=== PATIENT | female | born 1995 | race Hispanic/Latino ===

== ENCOUNTER 2018-01-01 05:38 | Inpatient (IN) | payer BC ==
[~2018-01-01 05:38] MED LIST: ACETAMINOPHEN 500 MG TAB PO PRN; METOCLOPRAMIDE 10 MG/2mL INJ IV PRN; ONDANSETRON 4 MG/2 ML VIAL IV PRN; Ringers Lactate 1,000 ML IV PRN; Ringers Lactate 1,000 ML IV SCH
--- OUTSIDE RECORDS SUMMARY | 2018-01-01 05:40 | XMS REPORT ---
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
--- OUTSIDE RECORDS SUMMARY | 2018-01-01 05:40 | XMS REPORT ---
:1995 Author Organization [employer] Care Team Providers Name Role Phone Fior Ag Provider Role Unavailable Allergies No Known Allergies Problems Problem Type Condition Code Onset Dates Condition Status Assessment Normal in second trimester Z34.92 Active Problem Normal in second trimester Z34.92 Active Medications No Known Medications Results No Known Results Summary Purpose [email or web address] Submission
--- OUTSIDE RECORDS SUMMARY | 2018-01-01 05:40 | XMS REPORT ---
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
--- OUTSIDE RECORDS SUMMARY | 2018-01-01 05:40 | XMS REPORT ---
[...] other Z34.83 Active normal in third trimester Medications No Known Medications Results No Known Results Summary Purpose [employer] Submission
--- OUTSIDE RECORDS SUMMARY | 2018-01-01 05:40 | XMS REPORT ---
:1995 Author Organization [facility] Care Team Providers Name Role Phone Fior Ag Provider Role Unavailable Allergies No Known Allergies Problems Problem Type Condition Code Onset Dates Condition Status Assessment Normal in second Z34.92 Active trimester Assessment Other viral diseases complicating O98.512 Active , second trimester Problem Normal in second Z34.92 Active trimester Assessment Herpesviral infection, unspecified B00.9 Active Medications No Known Medications Results No Known Results Summary Purpose [facility] [employer] Submission
[2018-01-01] MEDS ORDERED: miSOPROStol 100 MCG TAB PO ONE (06:32)
[2018-01-01 06:53] VITALS: BMI 35.3
[2018-01-01 07:01] LABS: RPR Titer ND
[2018-01-01 07:05] LABS: Urine Appearance CLOUDY; Urine Bilirubin NEGATIVE (NEG); Urine Blood NEGATIVE (NEG); Urine Color YELLOW; Urine Glucose NEGATIVE (NEG); Urine Protein NEGATIVE (NEG)
[2018-01-01 07:07] LABS: Absolute Monocytes 0.6 K/uL (0.1-1.3); Absolute Neutrophil 6.5 K/uL (1.8-8.0); Basophils % 0.2 % (0-1.3); Eosinophils % 0.9 % (0-4.4); Hematocrit 38.1 % (36.0-45.0); Lymphocytes % 21.2 % (15.3-44.8); MCV 92.9 fL (80-100); MPV 8.2 fL (7.6-11.3); Monocytes % 6.8 % (3.3-12.3); Urine Microscopic Reflex ORDER UMIC
[2018-01-01 07:20] LABS: Urine RBC <5 /HPF (NONE SEEN)
[2018-01-01 07:21] LABS: Urine Bacteria 20-50 /HPF (<20); Urine Culture Reflex Order REFLEXED; Urine Triple Phosphate Crystal FEW (NONE SEEN)
[2018-01-01] MEDS ORDERED: FENTANYL CITR 100 MCG/2 ML IV ONE (09:16)
[2018-01-01] MEDS ORDERED: ROPIVACAINE HCL 100 ML IV PRN (09:16)
[2018-01-01] MEDS ORDERED: ROPIVACAINE HCL 0.2% 20ML AMP SQ ONE (09:17)
--- NOTE | 2018-01-01 09:47 | P.HP ---
Certification for Inpatient Patient admitted to: Inpatient With expected LOS: >2 Midnights Patient will require the following post-hospital care: None Practitioner: I am a practitioner with admitting privileges, knowledge of patient current condition, hospital course, and medical plan of care. Services: Services provided to patient in accordance with Admission requirements found in Title 42 Section 412.3 of the Code of Federal Regulations Patient History Date of Service: 01/01/18 Reason for admission: Elective induction of labor History of Present Illness: 22-year-old 001 at 39 weeks and 6 days being admitted for elective induction of labor. She has had adequate care starting at 9 weeks. complicated by history of HSV-2 on prophylaxis since 36 weeks. Patient denies any signs or symptoms. LOUISE: 01/02/2018. GBS negative. Allergies No Known Allergies Allergy (Unverified 01/01/18 04:19) Home Medications: Vitamins/Fe Sulf/FA [ Tablet] 1 each PO DAILY 01/01/18 Valacyclovir [Valtrex] 500 mg PO Q8H 01/01/18 - Past Medical/Surgical History Has patient received pneumonia vaccine in the past: No -: HSV 2 -: Ovarian Cyst removed 2008 -: Vaginal delivery 2014 - Family History Brother -: Lung disease Notes: adolescent asthma - Social History Smoking Status: Never smoker Alcohol use: No CD- Drugs: No Caffeine use: Yes Place of Residence: Home Review of Systems 10-point ROS is otherwise unremarkable Physical Examination - Vital Signs Temperature: 97 F Blood Pressure: 120/67 Pulse: 97 Respirations: 18 - Physical Exam General: Alert, In no apparent distress, Oriented x3 HEENT: Atraumatic, Normocephalic Respiratory: Other (Normal effort) Cardiovascular: No edema, Normal pulses Musculoskeletal: No swelling, No tenderness Integumentary: No rashes, No breakdown Neurological: Normal speech, Normal strength at 5/5 x4 extr - Studies Laboratory Data (last 24 hrs) 01/01/18 06:05: WBC 9.2, Hgb 13.1, Hct 38.1, Plt Count 188 Female Exam - Female Pelvic Cervix: Dilation (3), Effacement (50), station (-2) Uterus: Non-tender, Soft, Gravid - Obstetrics heart rate tracing: Category 1 Contractions: Frequency (q 3-5 min) Amniotic membrane: Intact Assessment and Plan - Problems (Diagnosis) (1) Elective induction of labor planned Current Visit: Yes Status: Acute Plan: Patient admitted for elective induction of labor. Cervical ripening was started with Cytotec 50 mcg given orally x1. Cervical exam shows improvement in dilation and favorable cervix to start Pitocin. Patient desires an epidural for pain control. Plan on performing AROM when comfortable. Keep on continuous monitoring. - Advance Directives Does patient have a Living Will: No Does patient have a Durable POA for Healthcare: No
[2018-01-01] MEDS ORDERED: OXYTOCIN/LR 20 UNIT/1,000 ML BAG IV SCH (11:00)
--- NOTE | 2018-01-01 12:57 | P.PN ---
Date of Service: 01/01/18 Pt seen and examined. She is now comfortable with epidural. Discussed AROM and she agreed. VSS Vagina free of HSV lesions Cervix: /-2, intact. AROM done without incident. Light meconium stained fluid noted. A/p: 22 y.o.l at 39w6d undergoing IOL - S/p AROM - Continue pitocin and monitoring - Pain well controlled with epidural. Demarco in place - Continue current care
[2018-01-01] MEDS ORDERED: LIDOCAINE 2% INJ, 20 mL 20 ML ONE (16:59)
[2018-01-01] MEDS ORDERED: METHYLERGONOVINE 0.2MG/ML AMP IM ONE (16:59)
[2018-01-01] MEDS ORDERED: DOCUSATE NA/SENNA CONC 1 TAB PO PRN (18:55)
[2018-01-01] MEDS ORDERED: BISACODYL 10 MG RECTAL SUPP RECT PRN (18:55)
[2018-01-01] MEDS ORDERED: METOCLOPRAMIDE 5 MG TAB PO PRN (18:55)
[2018-01-01] MEDS ORDERED: ZOLPIDEM TARTRATE 5 MG TABLET PO PRN (18:55)
[2018-01-01] MEDS ORDERED: DIPHENHYDRAMINE 25 MG TAB/CAP PO PRN (18:55)
[2018-01-01] MEDS ORDERED: ONDANSETRON 4 MG (ODT) TAB PO PRN (18:55)
[2018-01-01] MEDS ORDERED: NA CHLORIDE 0.9% 1,000 ML IV SCH (19:00)
--- NOTE | 2018-01-01 19:00 | P.OP ---
Preoperative diagnosis: Term nicholas IUP, Elective induction of labor Postoperative diagnosis: Same Primary procedure: Anesthesia: Epidural Estimated blood loss: 300 cc Specimen: None Findings: See operative report Operative Technique: FINDINGS: Male fetus in KEEGAN position, asynclitic. APGARS of 9/9 at 1 and 5 minutes respectively, weight of lb oz, light meconium stained amniotic fluid. Normal appearing placenta. Midline laceration abrasion. Stage I: 5 h 23 min; Stage II: 12 min. HISTORY OF PRESENT ILLNESS: The patient is a 22-year-old female who is a at 39w6d who was admitted for an elective induction of labor. She had adequate care and was complicated by h/o genital herpes on prophylaxis. Labs were normal and she had otherwise routine care. On admission, she was noted to be 2-3 cm. She denied complaints and noted positive movement. PROCEDURE DETAILS: The patient was admitted to Labor and Delivery for induction , which was done with cytotec. Next, she was started on pitocin. Pain increased and she requested an epidural for pain control, which was placed with good result. AROM was done with light meconium stained fluid noted. Labor progressed normally. She had a spontaneous vaginal delivery of a live born male from an KEEGAN position with asynclitism present over an intact perineum at 18:30. After controlled delivery of the head, the shoulders and body followed without difficulty. Bulb suctioning was done. The was placed on the patient's abdomen for skin to skin contact. The cord was clamped and cut. Findings as stated above. There was no depression. was crying, vigorous, and moving all extremities. Spontaneous delivery of an intact placenta with a three-vessel cord was noted at 18:36. On examination, there was a midline abrasion and small cervical tear noted. It was hemostatic and did not require repair. On vaginal exam, there were no noted cervical or vaginal sidewall lacerations. Patient tolerated procedure well and there were no complications. Estimated blood loss was ~300 cc. Mother and are in recovery doing well at this time Complications: None Fluids & blood products: mIVF Transferred to: Recovery Room Condition: Good
[2018-01-01] MEDS: IBUPROFEN 200 MG TAB PO PRN (19:38)
[2018-01-01] MEDS ORDERED: NA CHLORIDE 0.9% 1,000 ML ONE (21:24)
[2018-01-02 00:13] LABS: RPR (Rapid Plasma Reagin) NON-REACT (NON-REACT)
[2018-01-02] MEDS ORDERED: NA CHLORIDE 0.9% 1,000 ML ONE (03:43)
[2018-01-02] MEDS: IBUPROFEN 200 MG TAB PO PRN ×2 (03:53→11:40)
[2018-01-02 04:39] LABS: Absolute Lymphocytes (CBC) 1.4 K/uL (0.7-4.9); Absolute Monocytes 0.9 K/uL (0.1-1.3); Absolute Neutrophil 13.4 K/uL (1.8-8.0); Basophils % 0.1 % (0-1.3); Eosinophils % 0.4 % (0-4.4); Hematocrit 33.5 % (36.0-45.0); Lymphocytes % 8.9 % (15.3-44.8); MCH 31.9 pg (27.0-35.0); MPV 8.1 fL (7.6-11.3); Monocytes % 5.5 % (3.3-12.3); RBC Red Blood Cell Count 3.64 M/uL (3.86-4.86)
[2018-01-02 04:55] LABS: BUN Blood Urea Nitrogen 7 mg/dL (7-18); Bicarbonate 22 mmol/L (21-32); Glucose Level 126 mg/dL (74-106); Potassium 3.8 mmol/L (3.5-5.1); Sodium Level 143 mmol/L (136-145)
[2018-01-02] MEDS ORDERED: CODEINE 30MG/APAP 300MG TAB PO ONE (07:40)
[2018-01-02 08:06] LABS: Blood Morphology Comment NOT SEEN (NOT SEEN); Platelet Estimate ADEQ
--- NOTE | 2018-01-02 09:02 | P.DS ---
Admission Date: 01/01/18 Discharge Date: 01/02/18 Disposition: ROUTINE DISCHARGE Comment: Rounding with discharge summary Discharge Condition: GOOD Reason for Admission: Elective induction of labor - Problems (1) Elective induction of labor planned Onset Date: 01/02/18 Current Visit: Yes Status: Resolved Brief History of Present Illness: 22-year-old 001 at 39 weeks and 6 days being admitted for elective induction of labor. She has had adequate care starting at 9 weeks. complicated by history of HSV-2 on prophylaxis since 36 weeks. Patient denies any signs or symptoms. LOUISE: 01/02/2018. GBS negative. Hospital Course: Patient was admitted for an elective induction of labor which was started with Cytotec. She was then transitioned to Pitocin and had AROM done. Labor progressed normally. She had spontaneous vaginal delivery of a healthy male infant. She is and is doing well. Lochia described as like menses. Pain is controlled with Motrin and T3. She is tolerating intake, is ambulating, and having normal spontaneous voids. Patient would like to go home and is stable for discharge home on day 1. Vital Signs/Physical Exam: Temp Pulse Resp BP Pulse Ox 97.1 F 88 18 113/65 01/02/18 07:04 01/02/18 07:04 01/02/18 07:04 01/02/18 07:04 General: Alert, In no apparent distress, Oriented x3 HEENT: Atraumatic, Normocephalic Respiratory: Other (Normal effort) Cardiovascular: Normal pulses Gastrointestinal: Soft and benign, Non-distended, No tenderness, Other (Uterus firm and below umbilicus) Musculoskeletal: Swelling (1+ B/L pedal edema) Integumentary: No rashes, No breakdown Neurological: Normal speech, Normal strength at 5/5 x4 extr Laboratory Data at Discharge: WBC 15.8 K/uL (4.3-10.9) H D 01/02/18 04:12 Hgb 11.6 g/dL (12.0-15.0) L 01/02/18 04:12 Hct 33.5 % (36.0-45.0) L 01/02/18 04:12 Plt Count 160 K/uL (152-406) 01/02/18 04:12 Sodium 143 mmol/L (136-145) 01/02/18 04:12 Potassium 3.8 mmol/L (3.5-5.1) 01/02/18 04:12 BUN 7 mg/dL (7-18) 01/02/18 04:12 Creatinine 0.60 mg/dL (0.55-1.3) 01/02/18 04:12 Glucose 126 mg/dL (74-106) H 01/02/18 04:12 Home Medications: Vitamins/Fe Sulf/FA [ Tablet] 1 each PO DAILY 01/01/18 Valacyclovir [Valtrex*] 500 mg PO Q8H 01/01/18 Codeine/APAP [Tylenol W/Codeine #3 tab] 1 tab PO Q6HP PRN #10 tab 01/02/18 Ibuprofen 800 mg PO Q8HP PRN #30 tablet 01/02/18 New Medications: Codeine/APAP [Tylenol W/Codeine #3 tab] 1 tab PO Q6HP PRN #10 tab PRN Reason: Pain Scale 8-10 (Severe) Ibuprofen 800 mg PO Q8HP PRN #30 tablet PRN Reason: Abdominal Cramps Patient Discharge Instructions: Complete pelvic rest for 6 weeks after delivery. Notify doctor of heavy bleeding, uncontrolled pain, fever/chills. See doctor in 6 weeks for exam Diet: Regular Activity: Ad ronna Followup: Fior Ag MD [ACTIVE - CAN ADMIT] - (Follow up care with Dr. Ag in 6 weeks. [phone])
[2018-01-02] MEDS ORDERED: CODEINE 30MG/APAP 300MG TAB PO PRN (09:04)
[2018-01-02 20:00] VITALS: BP 122/67; TEMP 97.7
[2018-01-03 12:53] LABS: HBsAG Nonreactive (Nonreactive)
== END 2018-01-02 20:30 | disposition home or self-care (01) | DRG 774 ==
LOC: 2ND-WC 05:38
PROVIDERS: ADMIT Obstetrics & Gynecology; ATTEND Obstetrics & Gynecology
PROC: 10E0XZZ Delivery of Products of Conception, External Approach (ICD-10-PCS; principal; 2018-01-01)
PROC: 3E0P7VZ Introduction of Hormone into Female Reproductive, Via Natural or Artificial Opening (ICD-10-PCS; 2018-01-01)
PROC: 3E033VJ Introduction of Other Hormone into Peripheral Vein, Percutaneous Approach (ICD-10-PCS; 2018-01-01)
PROC: 10907ZC Drainage of Amniotic Fluid, Therapeutic from Products of Conception, Via Natural or Artificial Opening (ICD-10-PCS; 2018-01-01)
DX: O77.0 Labor and delivery complicated by meconium in amniotic fluid (principal); O98.32 Other infections with a predominantly sexual mode of transmission complicating childbirth; A60.00 Herpesviral infection of urogenital system, unspecified; Z3A.39 39 weeks gestation of pregnancy; Z37.0 Single live birth; Z79.899 Other long term (current) drug therapy
CPT/HCPCS: 36415; 80048; 81003; 81015; 85025; 86592; 86850; 86900; 86901; 87086; 87088; 87340; J2210; J2590; J2795; J3010; J7030